=== PATIENT | male | born 1980 | race African-American/Black ===

== ENCOUNTER 2019-06-04 01:56 | Emergency (ER) | payer MEDICAID ==
[~2019-06-04] VITALS: Ht 175.3 cm; Wt 75.0 kg
[2019-06-04 02:10] VITALS: BP 145/91
== END 2019-06-04 03:30 | disposition left against medical advice (07) ==
LOC: ER 01:56
DX: M54.5 Low back pain (principal); Z53.21 Procedure and treatment not carried out due to patient leaving prior to being seen by health care provider

== ENCOUNTER 2021-05-27 11:55 | Emergency (ER) | payer OTHER ==
[~2021-05-27] VITALS: Ht 172.7 cm; Wt 75.0 kg
[~2021-05-27 11:55] MED LIST: AMLO10TA80 MT; TAMS-11 MT
[2021-05-27 11:57] VITALS: BP 128/84
[2021-05-27] MEDS ORDERED: ACETAMINOPHEN 325MG TABLET PO STA (12:20)
[2021-05-27] MEDS ORDERED: SODIUM CHLORIDE 0.9% 1,000 ML IV ONE (12:30)
== END 2021-05-27 12:30 | disposition left against medical advice (07) ==
LOC: ER 11:55
DX: R00.0 Tachycardia, unspecified (principal); T40.7X1A Poisoning by cannabis (derivatives), accidental (unintentional), initial encounter; Y92.89 Other specified places as the place of occurrence of the external cause
CPT/HCPCS: 99283; J7030

== ENCOUNTER 2021-07-20 19:57 | Emergency (ER) | payer MEDICAID, OTHER ==
[~2021-07-20] VITALS: Ht 182.9 cm; Wt 78.0 kg
[2021-07-20] MEDS ORDERED: ONDANSETRON HCL 4MG/2ML INJ IV STA (21:02)
[2021-07-20] MEDS ORDERED: SODIUM CHLORIDE 0.9% 1,000 ML IV ONE (21:15)
[2021-07-20 21:33] LABS: BASOPHILS % 0.6 % (0.0-2.0); EOSINOPHILS % 3.1 % (0.0-5.0); HEMATOCRIT. 45.2 % (42.0-52.0); LYMPHOCYTES % 27.9 % (20.0-50.0); MEAN CORPUSCULAR HEMOGLOBIN 27.9 pg (28.0-32.0); MEAN CORPUSCULAR VOLUME 83.7 fL (80.0-94.0); MEAN PLATELET VOLUME 8.6 fl (7.4-10.4); MONOCYTES % 13.7 % (2.0-8.0); NEUTROPHILS % 54.7 % (40.0-76.0); PLATELET 225 x1000/uL (130-400); RED CELL DISTRIBUTION WIDTH 15.3 % (11.6-14.6)
[2021-07-20 21:41] LABS: CHLORIDE 108 mEq/L (98-107)
[2021-07-21 01:00] VITALS: BP 137/84
== END 2021-07-21 01:01 | disposition home or self-care (01) ==
LOC: ER 19:57
DX: R53.1 Weakness (principal); R07.89 Other chest pain; F12.10 Cannabis abuse, uncomplicated
CPT/HCPCS: 36415; 71045; 80053; 83690; 84484; 85025; 93005; 96361; 96374; 99285; J2405; J7030

== ENCOUNTER 2021-08-28 03:10 | Emergency (ER) | payer MEDICAID ==
[~2021-08-28] VITALS: Ht 180.3 cm; Wt 90.0 kg
[2021-08-28] MEDS ORDERED: ACETAMINOPHEN 325MG TABLET PO STA (03:32)
[2021-08-28 04:21] LABS: CHLORIDE 106 mEq/L (98-107)
[2021-08-28 04:24] LABS: ETHANOL BLOOD < 10 mg/dL
[2021-08-28 04:33] LABS: BASOPHILS % 0.2 % (0.0-2.0); EOSINOPHILS % 0.6 % (0.0-5.0); HEMATOCRIT. 41.6 % (42.0-52.0); HEMOGLOBIN. 13.7 g/dL (14.0-18.0); LYMPHOCYTES % 8.5 % (20.0-50.0); MEAN CORPUSCULAR HEMOGLOBIN 27.2 pg (28.0-32.0); MEAN CORPUSCULAR VOLUME 82.6 fL (80.0-94.0); MEAN PLATELET VOLUME 8.6 fl (7.4-10.4); MONOCYTES % 9.4 % (2.0-8.0); NEUTROPHILS % 81.3 % (40.0-76.0); PLATELET 181 x1000/uL (130-400); RED BLOOD CELL COUNT 5.04 mill/uL (4.7-6.1); RED CELL DISTRIBUTION WIDTH 15.1 % (11.6-14.6)
[2021-08-28] MEDS ORDERED: ACET-2708 MT (05:33)
[2021-08-28 05:51] LABS: CLARITY URINE CLEAR (CLEAR); COLOR URINE YELLOW (YELLOW); KETONES URINE TRACE (NEGATIVE); LEUKOCYTE ESTERASE URINE NEGATIVE (NEGATIVE); NITRITE URINE NEGATIVE (NEGATIVE); OCCULT BLOOD URINE NEGATIVE (NEGATIVE); PH URINE 5.5 (4.5-8.0); PROTEIN URINE 2+ (NEGATIVE); SPECIFIC GRAVITY URINE 1.028 (1.005-1.030)
[2021-08-28 06:07] LABS: *AMPHETAMINES SCREEN URINE PRESUMTIVE POSITIVE (NEGATIVE); *BARBITURATES SCREEN URINE NEGATIVE (NEGATIVE); *BENZODIAZEPINES SCREEN URINE NEGATIVE (NEGATIVE); CANNABINOID URINE SCREEN PRESUMTIVE POSITIVE (NEGATIVE); PHENCYCLIDINE URINE SCREEN NEGATIVE (NEGATIVE)
[2021-08-28 06:08] LABS: *COCAINE SCREEN URINE NEGATIVE (NEGATIVE); METHADONE URINE SCREEN NEGATIVE (NEGATIVE); OPIATES URINE SCREEN NEGATIVE (NEGATIVE)
[2021-08-28 11:47] VITALS: BP 119/85
== END 2021-08-28 11:48 | disposition home or self-care (01) ==
LOC: ER 03:28
DX: R10.84 Generalized abdominal pain (principal); F12.10 Cannabis abuse, uncomplicated; F19.10 Other psychoactive substance abuse, uncomplicated; Z79.899 Other long term (current) drug therapy
CPT/HCPCS: 36415; 74176; 80053; 80305; 80320; 81003; 85025; 99284; G0480

== ENCOUNTER 2022-09-28 08:50 | Emergency (ER) | payer MEDICAID ==
[~2022-09-28] VITALS: Ht 175.3 cm; Wt 70.0 kg
[~2022-09-28 08:50] MED LIST changes: +ACET-2708 MT; +DICY20TA2 MT
[2022-09-28] MEDS ORDERED: ONDANSETRON 4MG ODT PO ONE (09:30)
[2022-09-28] MEDS ORDERED: ONDANSETRON 4MG ODT PO NR (11:30)
[2022-09-28 11:46] LABS: BASOPHILS % 0.3 % (0.0-2.0); EOSINOPHILS % 1.4 % (0.0-5.0); HEMATOCRIT. 44.5 % (42.0-52.0); HEMOGLOBIN. 14.9 g/dL (14.0-18.0); LYMPHOCYTES % 18.9 % (20.0-50.0); MEAN CORPUSCULAR HEMOGLOBIN 28.3 pg (28.0-32.0); MEAN CORPUSCULAR VOLUME 84.5 fL (80.0-94.0); MEAN PLATELET VOLUME 8.6 fl (7.4-10.4); MONOCYTES % 11.1 % (2.0-8.0); NEUTROPHILS % 68.3 % (40.0-76.0); PLATELET 195 x1000/uL (130-400); RED BLOOD CELL COUNT 5.27 mill/uL (4.7-6.1); RED CELL DISTRIBUTION WIDTH 14.6 % (11.6-14.6)
[2022-09-28 11:54] LABS: CHLORIDE 101 mEq/L (98-107); PROTHROMBIN TIME 11.1 sec (9.6-11.0)
[2022-09-28 13:31] LABS: CLARITY URINE CLEAR (CLEAR); COLOR URINE YELLOW (YELLOW); KETONES URINE TRACE (NEGATIVE); LEUKOCYTE ESTERASE URINE TRACE (NEGATIVE); NITRITE URINE NEGATIVE (NEGATIVE); OCCULT BLOOD URINE NEGATIVE (NEGATIVE); PH URINE 6.5 (4.5-8.0); PROTEIN URINE NEGATIVE (NEGATIVE); SPECIFIC GRAVITY URINE 1.022 (1.005-1.030)
[2022-09-28] MEDS ORDERED: ONDANSETRON HCL 4MG/2ML INJ IV PRN (14:45)
[2022-09-28] MEDS ORDERED: HYDROMORPHONE HCL/PF 2MG/ML CPJ IV PRN (14:45)
[2022-09-28] MEDS ORDERED: ACETAMINOPHEN 325MG TABLET PO PRN (14:45)
[2022-09-28] MEDS ORDERED: DEXT 5%/0.45% NACL 1000ML 1,000 ML IV SCH (14:45)
[2022-09-28] MEDS ORDERED: ZOLPIDEM TARTRATE 5MG TABLET PO PRN (14:45)
[2022-09-28] MEDS ORDERED: NALOXONE HCL 0.4MG/ML VIAL IV PRN (15:00)
[2022-09-28] MEDS ORDERED: ENOXAPARIN 40MG/0.4ML SYR SUBCUT SCH (15:00)
[2022-09-28 18:22] VITALS: BP 122/74
[2022-09-29 08:33] LABS: *AMPHETAMINES SCREEN URINE PRESUMTIVE POSITIVE (NEGATIVE); *BARBITURATES SCREEN URINE NEGATIVE (NEGATIVE); *BENZODIAZEPINES SCREEN URINE NEGATIVE (NEGATIVE); *COCAINE SCREEN URINE NEGATIVE (NEGATIVE); CANNABINOID URINE SCREEN PRESUMTIVE POSITIVE (NEGATIVE); METHADONE URINE SCREEN NEGATIVE (NEGATIVE); OPIATES URINE SCREEN NEGATIVE (NEGATIVE); PHENCYCLIDINE URINE SCREEN NEGATIVE (NEGATIVE)
== END 2022-09-28 19:37 | disposition left against medical advice (07) ==
LOC: ER 08:54 → EDBEDREQTM 13:45 → EDBEDREQ 13:45 → SUPCPDRO 14:40 → ER 19:37
DX: K56.600 Partial intestinal obstruction, unspecified as to cause (principal)
CPT/HCPCS: 36415; 74022; 80053; 80305; 81003; 83690; 85025; 85610; 96372; 99284; J1650; Q0162

== ENCOUNTER 2025-02-27 20:00 | Emergency (ER) | payer MEDICAID ==
[~2025-02-27] VITALS: Ht 175.3 cm; Wt 91.0 kg
[~2025-02-27 20:00] MED LIST changes: +APIX5TAB MT; -TAMS-11 MT; +TAMS-54 MT
[2025-02-27 20:04] VITALS: BP 145/105; PULSE 100; RESP 20; TEMP 36.6; O2SAT 96
[2025-02-28] MEDS ORDERED: IOHEXOL-300 100 ML BOTTLE ONE (04:39)
== END 2025-02-27 20:20 | disposition left against medical advice (07) ==
LOC: ER 20:00
DX: R06.02 Shortness of breath (principal); Z53.21 Procedure and treatment not carried out due to patient leaving prior to being seen by health care provider
CPT/HCPCS: Q9967

== ENCOUNTER 2025-04-03 15:52 | Emergency (ER) | payer MEDICAID ==
[~2025-04-03] VITALS: Ht 170.2 cm; Wt 86.0 kg
[~2025-04-03 15:52] MED LIST changes: -ACET-2708 MT; -AMLO10TA80 MT; +BUPR450T5 PO; -DICY20TA2 MT; +FURO40TA5 PO; +NALT50TA5 PO; -TAMS-54 MT
[2025-04-03 15:53] VITALS: TEMP 36.7; O2SAT 99
[2025-04-03 16:10] VITALS: BP 101/67; PULSE 104; RESP 19; O2SAT 97
[2025-04-03] MEDS ORDERED: SODIUM CHLORIDE 0.9% 1,000 ML IV ONE (16:30)
[2025-04-03] MEDS ORDERED: IPRATROPIUM/ALBUTEROL 0.5-3(2.5)MG/3ML NEB HHN ONE (16:30)
== END 2025-04-03 17:12 | disposition left against medical advice (07) ==
LOC: ER 15:52
DX: R06.02 Shortness of breath (principal); R55 Syncope and collapse; F15.90 Other stimulant use, unspecified, uncomplicated; I10 Essential (primary) hypertension; Z79.899 Other long term (current) drug therapy; Z79.01 Long term (current) use of anticoagulants; Z85.038 Personal history of other malignant neoplasm of large intestine; Z53.29 Procedure and treatment not carried out because of patient's decision for other reasons
CPT/HCPCS: 99283; 93005; J7030